=== PATIENT | female | born 1935 | race Two or more races ===

== ENCOUNTER 2019-05-02 14:10 | Inpatient (IN) | payer MEDICARE, OTHER ==
[~2019-05-02] VITALS: Ht 162.6 cm; Wt 31.6 kg
--- NOTE | 2019-05-02 14:21 | NUR ---
code called @1486 Pt arrived @ 8788 Neuro called @0515 call returned @ 1400
[2019-05-02] MEDS ORDERED: ALTEPLASE 1 MG/ML, 100ML ONE (14:35)
[2019-05-02] MEDS ORDERED: ALTEPLASE IV ONE (15:00)
[2019-05-02] MEDS ORDERED: ALTEPLASE IVPush ONE (15:00)
[2019-05-02 15:19] LABS: BASOPHILS # (AUTO) 0.06 x10^3/uL (0-0.1); BASOPHILS % (AUTO) 2 % (0-1); EOSINOPHILS # (AUTO) 0.23 x10^3/uL (0-0.4); EOSINOPHILS % (AUTO) 6 % (1-7); LYMPHOCYTES # (AUTO) 0.96 x10^3/uL (1-3.4); LYMPHOCYTES % (AUTO) 24 % (22-44); MD NO; MEAN CORPUSCULAR HEMOGLOBIN 32.7 pg (27.0-34.8); MEAN CORPUSCULAR HGB CONC 32.7 g/dL (32.4-35.8); MEAN CORPUSCULAR VOLUME 100.2 fL (80-100); MEAN PLATELET VOLUME 8.6 fL (7.4-10.4); MONOCYTES # (AUTO) 0.54 x10^3/uL (0.2-0.8); MONOCYTES % (AUTO) 14 % (2-9); NEUTROPHILS # (AUTO) 2.19 x10^3/uL (1.8-6.8); NEUTROPHILS % (AUTO) 55 % (42-75); PLATELET COUNT 193 x10^3/uL (130-400); RED BLOOD COUNT 3.57 x10^6/uL (3.82-5.3); RED CELL DISTRIBUTION WIDTH 13.5 % (9.6-15.2)
[2019-05-02 15:46] LABS: INTERNATIONAL NORMALIZED RATIO 1.07 (0.93-1.1); PROTHROMBIN TIME 11.2 Seconds (9.6-11.5)
[2019-05-02 15:55] LABS: TROPONIN I 0.266 ng/mL (0.000-0.045)
[2019-05-02] MEDS: ENALAPRILAT 1.25 MG/ML, 2ML IVPush PRN (16:25)
[2019-05-02] MEDS ORDERED: BISACODYL 10 MG SUPP PR PRN (16:30)
[2019-05-02] MEDS ORDERED: LABETALOL 5MG/ML, 20ML IVPush PRN (16:30)
[2019-05-02] MEDS ORDERED: POLYETHYLENE GLYCOL 17 GM PACKET PO PRN (16:30)
[2019-05-02] MEDS ORDERED: ACETAMINOPHEN 325 MG TABLET PO PRN (16:30)
[2019-05-02] MEDS ORDERED: ONDANSETRON 2MG/ML, 2ML IVPush PRN (16:30)
[2019-05-02] MEDS ORDERED: LABETALOL 5 MG/ML SYR. (IV ONLY) IVPush PRN (16:30)
[2019-05-02] MEDS: NS + 20MEQ KCL 1,000 ML IV SCH (16:32)
[2019-05-02] MEDS ORDERED: FAMOTIDINE 20 MG/2 ML IVPush SCH (21:00)
[2019-05-03] MEDS: NS + 20MEQ KCL 1,000 ML IV SCH ×4 (00:47→23:01)
[2019-05-03 03:09] LABS: BASOPHILS # (AUTO) 0.06 x10^3/uL (0-0.1); BASOPHILS % (AUTO) 1 % (0-1); EOSINOPHILS # (AUTO) 0.13 x10^3/uL (0-0.4); EOSINOPHILS % (AUTO) 2 % (1-7); LYMPHOCYTES # (AUTO) 0.71 x10^3/uL (1-3.4); LYMPHOCYTES % (AUTO) 11 % (22-44); MD NO; MEAN CORPUSCULAR HGB CONC 32.8 g/dL (32.4-35.8); MEAN CORPUSCULAR VOLUME 100.5 fL (80-100); MEAN PLATELET VOLUME 8.1 fL (7.4-10.4); MONOCYTES # (AUTO) 0.69 x10^3/uL (0.2-0.8); MONOCYTES % (AUTO) 11 % (2-9); NEUTROPHILS # (AUTO) 4.86 x10^3/uL (1.8-6.8); NEUTROPHILS % (AUTO) 76 % (42-75); PLATELET COUNT 169 x10^3/uL (130-400); RED BLOOD COUNT 3.32 x10^6/uL (3.82-5.3); RED CELL DISTRIBUTION WIDTH 13.5 % (9.6-15.2)
[2019-05-03 03:22] LABS: ALBUMIN 3.3 g/dL (3.4-5.0); ANION GAP 6 mmol/L (5-15); CHLORIDE 111 mmol/L (98-107)
[2019-05-03 03:29] LABS: ALANINE AMINOTRANSFERASE 30 U/L (12-78); ALKALINE PHOSPHATASE 59 U/L (45-117); CREATININE 1.21 mg/dL (0.55-1.02); TOTAL PROTEIN 6.5 g/dL (6.4-8.2); TROPONIN I 0.231 ng/mL (0.000-0.045)
[2019-05-03 04:04] VITALS: BP 157/73
[2019-05-03 05:13] LABS: MICROSCOPIC AUTO
[2019-05-03 05:15] LABS: CULTURE INDICATED? YES
[2019-05-03] MEDS ORDERED: MAGNESIUM SULFATE PMX 2GM/50ML 50 ML IV ONE (08:00)
[2019-05-03] MEDS ORDERED: SODIUM PHOSPHATE 10 MMOL in SODIUM CHLORIDE 0.9% 500 ML IV ONE (08:00)
[2019-05-03] MEDS: SENNA/DOCUSATE TABLET PO SCH (09:00)
--- NOTE | 2019-05-03 10:46 | NUR ---
REC: Pureed/NTL diet; orange sheet posted Addendum: 05/03/19 at 1046 by Cher STANLEY Amended: Links added.
--- NOTE | 2019-05-03 14:45 | NUR ---
[facility] HEURTAS - Fall Risk Medication(s) (Enalaprilat IV last dose 05/02/19) present and receiving anticoagulants (Alteplase - fibrinolytic). Signed: 05/03/19 at 1448 by Chemo OCONNELL
[2019-05-03] MEDS: ENALAPRILAT 1.25 MG/ML, 2ML IVPush PRN (15:55)
[2019-05-03 18:48] VITALS: BP 146/80
[2019-05-03] MEDS: FAMOTIDINE 20 MG/2 ML IVPush SCH (20:36)
[2019-05-04 01:05] VITALS: BP 131/68
[2019-05-04] MEDS: ATENOLOL 25 MG TABLET PO SCH (06:28)
[2019-05-04 06:32] VITALS: BP 142/75
[2019-05-04] MEDS: NS + 20MEQ KCL 1,000 ML IV SCH ×2 (06:55→15:26)
[2019-05-04] MEDS: SENNA/DOCUSATE TABLET PO SCH (08:05)
[2019-05-04 08:28] LABS: BASOPHILS # (AUTO) 0.06 x10^3/uL (0-0.1); BASOPHILS % (AUTO) 1 % (0-1); EOSINOPHILS # (AUTO) 0.15 x10^3/uL (0-0.4); EOSINOPHILS % (AUTO) 2 % (1-7); LYMPHOCYTES # (AUTO) 1.15 x10^3/uL (1-3.4); LYMPHOCYTES % (AUTO) 14 % (22-44); MD NO; MEAN CORPUSCULAR HEMOGLOBIN 32.1 pg (27.0-34.8); MEAN CORPUSCULAR HGB CONC 32.4 g/dL (32.4-35.8); MEAN PLATELET VOLUME 7.9 fL (7.4-10.4); MONOCYTES # (AUTO) 0.59 x10^3/uL (0.2-0.8); MONOCYTES % (AUTO) 7 % (2-9); NEUTROPHILS # (AUTO) 6.01 x10^3/uL (1.8-6.8); NEUTROPHILS % (AUTO) 76 % (42-75); PLATELET COUNT 179 x10^3/uL (130-400); RED BLOOD COUNT 3.51 x10^6/uL (3.82-5.3); RED CELL DISTRIBUTION WIDTH 13.6 % (9.6-15.2)
[2019-05-04 08:40] LABS: ANION GAP 8 mmol/L (5-15); CALCIUM 7.9 mg/dL (8.5-10.1); CHLORIDE 113 mmol/L (98-107); CREATININE 1.01 mg/dL (0.55-1.02)
[2019-05-04] MEDS ORDERED: ENALAPRILAT 1.25 MG/ML, 1ML ONE ×3 (11:16→19:57)
[2019-05-04] MEDS: ENALAPRILAT 1.25 MG/ML, 2ML IVPush PRN ×2 (11:19→14:47)
[2019-05-04] MEDS: ASPIRIN 81 MG TABLET EC PO SCH (11:37)
[2019-05-04 13:50] VITALS: BP 189/74
[2019-05-04 15:23] VITALS: BP 185/81
[2019-05-04] MEDS ORDERED: ATEN50TA41 PO (15:53)
[2019-05-04] MEDS ORDERED: ATOR-2 PO ×2 (15:53→17:40)
[2019-05-04] MEDS ORDERED: ASPI81TA45 PO (16:09)
[2019-05-04] MEDS ORDERED: LOSA1TAB19 PO (16:09)
[2019-05-04] MEDS ORDERED: LISI1TAB19 PO (16:09)
[2019-05-04] MEDS: LISINOPRIL 20 MG TABLET PO SCH (18:15)
[2019-05-04 19:13] VITALS: BP 176/93
[2019-05-04] MEDS: FAMOTIDINE 20 MG/2 ML IVPush SCH (20:03)
[2019-05-04] MEDS: ATORVASTATIN 80 MG TABLET PO SCH (20:03)
[2019-05-05 01:10] VITALS: BP 109/68
[2019-05-05] MEDS: NS + 20MEQ KCL 1,000 ML IV SCH (02:01)
[2019-05-05 05:02] LABS: BASOPHILS # (AUTO) 0.02 x10^3/uL (0-0.1); BASOPHILS % (AUTO) 0 % (0-1); EOSINOPHILS # (AUTO) 0.16 x10^3/uL (0-0.4); EOSINOPHILS % (AUTO) 2 % (1-7); LYMPHOCYTES % (AUTO) 9 % (22-44); MD NO; MEAN CORPUSCULAR HEMOGLOBIN 32.2 pg (27.0-34.8); MEAN CORPUSCULAR HGB CONC 32.6 g/dL (32.4-35.8); MEAN CORPUSCULAR VOLUME 98.5 fL (80-100); MEAN PLATELET VOLUME 8.6 fL (7.4-10.4); MONOCYTES # (AUTO) 0.64 x10^3/uL (0.2-0.8); MONOCYTES % (AUTO) 8 % (2-9); NEUTROPHILS % (AUTO) 81 % (42-75); PLATELET COUNT 165 x10^3/uL (130-400); RED BLOOD COUNT 3.35 x10^6/uL (3.82-5.3); RED CELL DISTRIBUTION WIDTH 13.6 % (9.6-15.2)
[2019-05-05 05:18] LABS: CHLORIDE 113 mmol/L (98-107)
[2019-05-05 05:27] LABS: ANION GAP 6 mmol/L (5-15); CALCIUM 7.8 mg/dL (8.5-10.1); CHOL/HDL RATIO 1.9; CHOLESTEROL, TOTAL 124 mg/dL (140-239); CREATININE 0.92 mg/dL (0.55-1.02); HDL CHOL % 54 % (28-40); HDL CHOLESTEROL (DIRECT) 67 mg/dL (40-60); LDL CHOLESTEROL,CALCULATED 42 mg/dL (54-169); LDL/HDL RATIO 0.6 (0.5-3.0); TRIGLYCERIDES 77 mg/dL (50-200); VLDL CHOLESTEROL 15 mg/dL (0-25)
[2019-05-05] MEDS: ASPIRIN 81 MG TABLET EC PO SCH (05:55)
[2019-05-05] MEDS: ATENOLOL 25 MG TABLET PO SCH (05:55)
[2019-05-05 06:51] VITALS: BP 138/81
[2019-05-05] MEDS: LISINOPRIL 20 MG TABLET PO SCH (09:52)
[2019-05-05] MEDS: SENNA/DOCUSATE TABLET PO SCH (09:53)
[2019-05-05 12:40] VITALS: BP 180/99
[2019-05-05] MEDS ORDERED: ENALAPRILAT 1.25 MG/ML, 1ML ONE (12:45)
[2019-05-05] MEDS: ENALAPRILAT 1.25 MG/ML, 2ML IVPush PRN (12:50)
[2019-05-05 15:06] VITALS: BP 162/87
[2019-05-05] MEDS ORDERED: HALOPERIDOL 5 MG/ML IM PRN (17:30)
[2019-05-05 19:43] VITALS: BP 172/85
[2019-05-05] MEDS: FAMOTIDINE 20 MG/2 ML IVPush SCH (20:59)
[2019-05-05] MEDS: ATORVASTATIN 80 MG TABLET PO SCH (21:00)
[2019-05-05] MEDS: AMLODIPINE 5 MG TABLET PO SCH (21:00)
[2019-05-06 03:55] VITALS: BP 158/88
[2019-05-06 06:41] VITALS: BP 131/81
[2019-05-06] MEDS: ATENOLOL 25 MG TABLET PO SCH (07:36)
[2019-05-06] MEDS: ASPIRIN 81 MG TABLET EC PO SCH (07:36)
[2019-05-06] MEDS: SENNA/DOCUSATE TABLET PO SCH (08:50)
[2019-05-06] MEDS: LISINOPRIL 20 MG TABLET PO SCH (08:50)
[2019-05-06] MEDS: AMLODIPINE 5 MG TABLET PO SCH (08:51)
[2019-05-06] MEDS ORDERED: LISI-170 PO (11:33)
[2019-05-06] MEDS ORDERED: ASPI81TA45 PO (11:33)
[2019-05-06] MEDS ORDERED: AMLO-150 PO (11:33)
== END 2019-05-06 12:30 | DRG 61 ==
LOC: EDBD 14:10 → EDSEX 14:10 → ED 15:12 → EDIP 15:23 → ICU 16:06 → 4EST 05-03 16:44 → 4WST 05-03 17:33 → DCLOUNGE 05-06 12:24
PROVIDERS: ADMIT Internal Medicine; ATTEND Internal Medicine
PROC: 3E03317 Introduction of Other Thrombolytic into Peripheral Vein, Percutaneous Approach (ICD-10-PCS; principal; 2019-05-02)
PROC: B3111ZZ Fluoroscopy of Right Brachiocephalic-Subclavian Artery using Low Osmolar Contrast (ICD-10-PCS; 2019-05-02)
PROC: B31G1ZZ Fluoroscopy of Bilateral Vertebral Arteries using Low Osmolar Contrast (ICD-10-PCS; 2019-05-02)
PROC: B3121ZZ Fluoroscopy of Left Subclavian Artery using Low Osmolar Contrast (ICD-10-PCS; 2019-05-02)
PROC: B3181ZZ Fluoroscopy of Bilateral Internal Carotid Arteries using Low Osmolar Contrast (ICD-10-PCS; 2019-05-02)
PROC: B31C1ZZ Fluoroscopy of Bilateral External Carotid Arteries using Low Osmolar Contrast (ICD-10-PCS; 2019-05-02)
PROC: B3151ZZ Fluoroscopy of Bilateral Common Carotid Arteries using Low Osmolar Contrast (ICD-10-PCS; 2019-05-02)
PROC: 0T9B70Z Drainage of Bladder with Drainage Device, Via Natural or Artificial Opening (ICD-10-PCS; 2019-05-03)
DX: I63.312 Cerebral infarction due to thrombosis of left middle cerebral artery (principal); G93.41 Metabolic encephalopathy; N17.0 Acute kidney failure with tubular necrosis; I16.1 Hypertensive emergency; G81.91 Hemiplegia, unspecified affecting right dominant side; D53.9 Nutritional anemia, unspecified; D75.89 Other specified diseases of blood and blood-forming organs; E78.00 Pure hypercholesterolemia, unspecified; E78.5 Hyperlipidemia, unspecified; E87.6 Hypokalemia; F03.90 Unspecified dementia, unspecified severity, without behavioral disturbance, psychotic disturbance, mood disturbance, and anxiety; I07.1 Rheumatic tricuspid insufficiency; I10 Essential (primary) hypertension; I35.8 Other nonrheumatic aortic valve disorders; I67.1 Cerebral aneurysm, nonruptured; I65.23 Occlusion and stenosis of bilateral carotid arteries; R29.810 Facial weakness; R47.01 Aphasia; Z82.49 Family history of ischemic heart disease and other diseases of the circulatory system; Z86.73 Personal history of transient ischemic attack (TIA), and cerebral infarction without residual deficits
CPT/HCPCS: 0042T; 36415; 70450; 70496; 70498; 70551; 71045; 80047; 80048; 80053; 80061; 81001; 82962; 83036; 83735; 84100; 84443; 84484; 85025; 85610; 85730; 87077; 87081; 87086; 87186; 93005; 93306; 96374; 96375; G0378; J2997; J3480; J3475; J3490; J7040